=== PATIENT | female | born 1945 | race Caucasian/White ===

== ENCOUNTER → 2016-08-11 | Outpatient (CLI) | payer OTHER ==
[~2016-08-11] MED LIST: ANAS1TAB19 PO; ASPI81TA28 PO; BISO10TA14 PO; BUSP5TAB59 PO; COEN1CAP28 PO; FLV400 PO; LISI10TA PO; LORA-741 PO
[2016-08-11 12:48] VITALS: BP 114/75; PULSE 72; TEMP 36.7; O2SAT 96
--- NOTE | 2016-08-11 16:35 | Radiation Oncology Follow-Up ---
Radiation Oncology Follow-Up Date of Visit Aug 11, 2016. Reason For Visit One-month follow-up and cancer survivorship care plan Radiation Completion Date finished 07-03-16 to left breast Diagnosis (1) Breast cancer, right breast Status: Acute Onset Date: 03/11/2016 Stage: l (A) Permanent Comment: Abnormal right breast mammogram Status post biopsy 03/21/2016 revealing lobular carcinoma grade 1 Estrogen receptor positive, progesterone receptor positive, HER-2/timothy negative Status post right breast needle localization lumpectomy and sentinel lymph node biopsy Stage pT1b pN0 Radiation therapy was not required. Last Edited By: Liya Linares on Jul 15:23 (2) Breast cancer, left Status: Acute Onset Date: 04/21/2016 Stage: l (A) Permanent Comment: Lobular carcinoma in situ 2005 status post biopsy and 5 years of tamoxifen Abnormal mammogram leading to an MRI revealing a lesion of the left breast Status post left breast biopsy 04/21/2016 revealing invasive ductal carcinoma grade 3 Estrogen receptor negative, progesterone receptor negative, HER-2/timothy negative Status post needle localization partial mastectomy and sentinel lymph node biopsy 05/13/2016 Stage pT1b pN0 Prosigna score of 41 Oncotype DX score of 20 Status post completion of radiation therapy 07/03/2016 utilizing hypo- fractionation. She received 5130 cGy. Last Edited By: Liya Linares on Aug 11, 2016 16:31 History of Present Illness Ms. Ball is a 70-year-old female without a family history of breast cancer. She has a prior history of diagnosis of LCIS of the right breast and was treated with 5 years of tamoxifen. She is since been followed with screening mammograms. On 02/22/2016 the patient underwent bilateral screening mammograms. In the right breast and irregular mass density with indistinct margins was noted measuring 8 mm x 6 mm x 7 mm located in the lower inner quadrant posteriorly. Additional views were recommended. On 03/06/2016 patient underwent a unilateral diagnostic mammogram. This confirmed an irregular mass in the right breast measuring 8 x 6 x 7 mm in the lower inner quadrant posteriorly. The left breast was unremarkable. A biopsy was recommended. On 03/11/2016 patient underwent an ultrasound-guided biopsy of the right breast mass at the 3 o'clock position 7 cm from the nipple. This identified an invasive carcinoma with lobular features and histologic grade 1. The tumor measured 0.7 cm in greatest dimension. Estrogen receptors were strongly positive, progesterone receptors were strongly positive and HER-2/timothy oncogene expression was negative by IHC. Accession #: [id number]. The patient was seen by Dr. Cheek to discuss treatment options. She recommended MRI evaluation prior to definitive treatment. The MRI was performed on 04/16/2016. In the right breast a 0.8 x 0.7 x 0.7 cm irregular mass was again appreciated at the site of the known cancer in the 3:00 radian. However in the left breast a 0.6 x 0.6 x 0.6 cm round mass was present in the 6: 00 radian at the posterior depth. On 04/21/2016 the patient underwent a left breast biopsy. This confirmed an invasive ductal carcinoma, histologic grade 3 measuring 0.4 cm in greatest dimension. Estrogen receptors were negative, progesterone receptors were negative and HER-2/timothy oncogene expression was negative by IHC. Accession #: [id number]. On 04/22/2016 the patient underwent a right needle localizing lumpectomy with sentinel node biopsy. A single sentinel node was identified and was negative. The lumpectomy specimen confirmed an invasive lobular carcinoma measuring 0.8 cm. Margins were uninvolved by invasive carcinoma. No DCIS was identified. This was a stage pT1b pN0(sn-) ER positive CA positive HER-2/timothy negative. Accession #: [id number]. This tissue was ultimately sent for genetic testing utilizing the Prosigna test. The risk score was 41 which corresponds to a probability of distant recurrence at 10 years of 10%. On 05/13/2016 the patient underwent a left breast needle localization partial mastectomy and a left axillary sentinel lymph node biopsy. 2 sentinel nodes were uninvolved with cancer. The lumpectomy specimen revealed an invasive carcinoma NOS, grade 3 measuring 0.6 cm in size. There was a small component of associated ductal carcinoma in situ grade 3 without necrosis. This measured 0.2 centimeters and was located 0.4 cm from the nearest anterior margin. The margins were uninvolved by invasive carcinoma. Estrogen receptors were negative , progesterone receptors were negative and HER-2/timothy was negative by IHC. Accession #: [id number]. Final stage was therefore pT1b pN0(sn-) ER negative, CA negative and HER-2/timothy negative. The patient was seen by Dr. Fox to evaluate the role of adjuvant therapy. He reviewed with her the use of adjuvant chemotherapy and adjuvant hormonal therapy. Based on the recent genetic testing score and the patient's desire to avoid systemic chemotherapy if possible the decision was made to proceed with antiestrogen therapy only following completion of any planned radiation. We were asked to see the patient in referral to discuss with her the role of adjuvant radiation. It was for this reason the patient is seen in referral. The patient did not require radiation therapy to the right breast. The left breast was treated with hypo-fractionation. Treatment was completed 2016. She received 5130 cGy. Interim History She's been doing well over this past month. She has noted no changes to her breast. No masses or tenderness no change of the axilla. She's had no swelling of her arm. She has seen Dr. Cheek in follow-up. Mammography has been scheduled for October. This will be a bilateral digital diagnostic mammogram. She is also has been seen Dr. Fox for medical oncology. She is on anastrozole. She denies side effects. Allergies Coded Allergies: No Known Allergies (Unverified , 05/21/16) Home Medications Scheduled Anastrozole (Arimidex), 1 TAB PO DAILY Aspirin (Aspirin Ec), 81 MG PO Q2D Bisoprolol/Hctz (Ziac 10MG/6.25MG), 1 TAB PO Q2D Buspirone Hcl (Buspirone Hcl), 15 MG PO BID Coenzyme Q10 (Ubidecarenone) (Co Q10), 1 CAP PO DAILY Folic Acid (Folic Acid), 400 MCG PO BIDM Lisinopril (Prinivil), 10 MG PO DAILY Scheduled PRN Lorazepam (Ativan), 0.5 MG PO Q6H PRN for Anxiety/Agitation Review of Systems Gastrointestinal: Symptoms: WNL Oral: Symptoms: No Problems Respiratory: Symptoms: WNL Urinary: Symptoms: Nocturia Comments: ncoturia 1- 2 times Skin: Symptoms: No Problems Breast: Right Upper Arm Measurement: 30.0 Right Mid Arm Measurement: 24.5 Right Wrist Measurement: 17.0 Left Upper Arm Measurement: 29.0 Left Mid Arm Measurement: 24.0 Left Wrist Measurement: 16.9 Arm Dominence: Right Patient Cosmetic Evaluation: Excellent Staff Cosmetic Evalaluation: Excellent Additional Notes: She completed a distress management report and answered "no" 12 questions other than she has concerns about sleep. Physical Exam Vital Signs Date Time Temp Pulse Resp B/P Pulse Ox O2 Delivery O2 Flow Rate FiO2 08/11/16 12:48 36.7 72 16 114/75 96 Pain: Side: Bilateral Patient Pain Scale: 0 - 10 Initial Pain Intensity: 0.0 General Appearance: no apparent distress Eyes: normal inspection, EOMI ENT: normal ENT inspection, hearing grossly normal Neck: no adenopathy Respiratory/Chest: lungs clear, no respiratory distress, no accessory muscle use Breast: Breast examination reveals bilateral well-healed incisions. There are no masses or tenderness and no axillary adenopathy. She has no skin retractions or nipple changes. Using the [place] score cosmesis she has a good outcome. Cardiovascular: regular rate, rhythm, no gallop, no murmur Abdomen: non tender, soft Extremities: no pedal edema Neurologic/Psychiatric: no motor/sensory deficits, alert, normal mood/affect Skin: warm/dry Assessment & Plan Plan: Mammography has been scheduled for October. This week digital diagnostic bilateral mammography. She continues follow-up with Dr. Fox for medical oncology and Dr. Cheek. Today we completed a cance survivorship care plan. A copy of the document was given to the patient. She was also given a survivorship booklet. We asked her to return to our office in 6 months. She may call if she has any questions or concerns in the interim. Total Time In Follow-Up I spent 20 minutes speaking to the patient performing examination. I spent 20 minutes reviewing information, preparing the survivorship document, and completing this note. Copy To Rochelle Cheek MD; Janett Frausto M.D.; Malcom Fox M.D.
== END | disposition home or self-care (01) ==
LOC: C.ONC 12:41
PROVIDERS: ATTEND Physician Assistant Medical
DX: Z08 Encounter for follow-up examination after completed treatment for malignant neoplasm (principal); Z92.3 Personal history of irradiation; Z85.3 Personal history of malignant neoplasm of breast

== ENCOUNTER → 2016-10-26 | Outpatient (CLI) | payer OTHER | END | disposition home or self-care (01) | LOC: C.LABMFLN 11:37 | PROVIDERS: ATTEND Family Medicine | DX: R39.9 Unspecified symptoms and signs involving the genitourinary system (principal) ==

== ENCOUNTER → 2016-10-27 | Outpatient (CLI) | payer OTHER | END | disposition home or self-care (01) | LOC: C.LABMFLN 08:59 | PROVIDERS: ATTEND Family Medicine | DX: R19.7 Diarrhea, unspecified (principal); R39.9 Unspecified symptoms and signs involving the genitourinary system ==

== ENCOUNTER → 2016-12-01 | Outpatient (CLI) | payer OTHER | END | disposition home or self-care (01) | LOC: C.PATHSPEC 18:01 | PROVIDERS: ATTEND Dermatology | DX: L57.0 Actinic keratosis (principal); B07.9 Viral wart, unspecified ==

== ENCOUNTER → 2016-12-28 | Outpatient (CLI) | payer OTHER ==
[2016-12-28 13:47] LABS: THYROID STIMULATING HORMONE 1.33 uIu/ml (0.300-4.500)
[2017-01-02 11:08] LABS: 18KDIGG BAND REACTIVE (NONREACTIVE); 23KDIGG BAND REACTIVE (NONREACTIVE); 23KDIGM BAND REACTIVE (NONREACTIVE); 28KDIGG BAND NONREACTIVE (NONREACTIVE); 30KDIGG BAND NONREACTIVE (NONREACTIVE); 39KDIGG BAND REACTIVE (NONREACTIVE); 39KDIGM BAND NONREACTIVE (NONREACTIVE); 41KDIGG BAND REACTIVE (NONREACTIVE); 41KDIGM BAND REACTIVE (NONREACTIVE); 45KDIGG BAND REACTIVE (NONREACTIVE); 58KDIGG BAND NONREACTIVE (NONREACTIVE); 66KDIGG BAND NONREACTIVE (NONREACTIVE); 93KDIGG BAND NONREACTIVE (NONREACTIVE)
== END | disposition home or self-care (01) ==
LOC: C.LABMFLN 09:36
PROVIDERS: ATTEND Family Medicine
DX: R41.3 Other amnesia (principal); A69.20 Lyme disease, unspecified

== ENCOUNTER → 2017-02-02 | Outpatient (CLI) | payer OTHER ==
[2017-02-02 13:55] LABS: CHOLESTEROL/HDL RATIO 4.1
== END | disposition home or self-care (01) ==
LOC: C.LABMFLN 08:45
PROVIDERS: ATTEND Family Medicine
DX: E78.5 Hyperlipidemia, unspecified (principal); E11.9 Type 2 diabetes mellitus without complications

== ENCOUNTER → 2017-04-05 | Outpatient (CLI) | payer OTHER | END | disposition home or self-care (01) | LOC: C.PATHSPEC 17:21 | PROVIDERS: ATTEND Dermatology | DX: L57.0 Actinic keratosis (principal); C44.329 Squamous cell carcinoma of skin of other parts of face ==

== ENCOUNTER → 2017-05-13 | Outpatient (CLI) | payer OTHER ==
[2017-05-13 17:54] LABS: ALBUMIN 3.8 gm/dl (3.4-5.0); BLOOD UREA NITROGEN 13 mg/dl (7-18); CALCIUM 10.2 mg/dl (8.5-10.1); CARBON DIOXIDE 29 mmol/L (21-32); CREATININE 1.06 mg/dl (0.60-1.20); GLUCOSE 147 mg/dl (70-99); POTASSIUM 4.1 mmol/L (3.5-5.1); SODIUM 137 mmol/L (136-145)
[2017-05-14 07:20] LABS: HEMOGLOBIN A1C 7.5 % (4.5-5.6)
== END | disposition home or self-care (01) ==
LOC: C.LABMFLN 14:35
PROVIDERS: ATTEND Family Medicine
DX: E11.9 Type 2 diabetes mellitus without complications (principal)

== ENCOUNTER → 2017-06-15 | Outpatient (CLI) | payer OTHER | END | disposition home or self-care (01) | LOC: C.PATHSPEC 11:02 | PROVIDERS: ATTEND Plastic Surgery | DX: C44.329 Squamous cell carcinoma of skin of other parts of face (principal) ==

== ENCOUNTER → 2017-07-02 | Outpatient (CLI) | payer OTHER | END | disposition home or self-care (01) | LOC: C.PATHSPEC 13:27 | PROVIDERS: ATTEND Dermatology | DX: D04.61 Carcinoma in situ of skin of right upper limb, including shoulder (principal) ==

== ENCOUNTER → 2017-09-14 | Outpatient (CLI) | payer OTHER ==
[2017-09-14 14:08] LABS: HEMOGLOBIN A1C 6.7 % (4.5-5.6)
[2017-09-14 14:58] LABS: ALBUMIN 3.5 gm/dl (3.4-5.0); BLOOD UREA NITROGEN 14 mg/dl (7-18); CALCIUM 9.9 mg/dl (8.5-10.1); CARBON DIOXIDE 28 mmol/L (21-32); CREATININE 0.89 mg/dl (0.60-1.20); GLUCOSE 154 mg/dl (70-99); PHOSPHORUS 3.4 mg/dl (2.5-4.9); POTASSIUM 4.2 mmol/L (3.5-5.1); SODIUM 139 mmol/L (136-145)
== END | disposition home or self-care (01) ==
LOC: C.LABMFLN 08:48
PROVIDERS: ATTEND Family Medicine
DX: E11.9 Type 2 diabetes mellitus without complications (principal)